=== PATIENT | female | born 1985 | race African-American/Black ===

== ENCOUNTER 2021-05-05 20:02 | Emergency (ER) | payer SELFPAY ==
[2021-05-05 21:22] LABS: Urine Blood 3+ (Negative); Urine Glucose Negative (Negative); Urine Protein 3+ (Negative); Urine Specific Gravity 1.025 (1.005-1.030); Urine pH 6.5 (5.0-7.0)
[2021-05-05 21:58] LABS: Urine Bacteria LOADED /HPF (<20)
--- NOTE | 2021-05-05 22:06 | RAD REPORT ---
EXAM DESCRIPTION: RAD - Chest Single View - 05/05/2021 9:59 pm CLINICAL HISTORY: SOB Chest pain. COMPARISON: No comparisons FINDINGS: Portable technique limits examination quality. Mild to moderate bilateral pulmonary opacities are present likely representing viral infection/bronch itis. The heart is upper limit of normal in size. No displaced fractures.
[2021-05-05] MEDS ORDERED: IBUPROFEN 200 MG TAB PO ONE (22:15)
[2021-05-05] MEDS ORDERED: NA CHLORIDE 0.9% 1,000 ML ONE (23:07)
[2021-05-05] MEDS ORDERED: HYDROCODONE/APAP 5/325 MG TAB ONE (23:07)
[2021-05-05] MEDS ORDERED: CEFTRIAXONE/SWI 1gm 1 GM/10 ML SYR ONE (23:07)
[2021-05-05] MEDS ORDERED: METHYLPREDNISOLONE 125 MG INJ ONE (23:07)
[2021-05-05] MEDS ORDERED: ONDANSETRON 4 MG/2 ML VIAL ONE (23:07)
[2021-05-05 23:16] LABS: Urine Specific Gravity/Preg 1.025 (1.005-1.030)
--- NOTE | 2021-05-05 23:28 | EDPHYS ---
Physician Documentation [facility] Name: Mariaelena Duvall Age: 35 yrs Sex: Female : 1985 Arrival Date: 05/05/2021 Time: 20:12 Bed 24 Private MD: ED Physician Tania Patel HPI: 05/05 23:26 This 35 yrs old Black Female presents to ER via Wheelchair with complaints of COVID ma2 POSITIVE, Breathing Difficulty, Dizziness, Weakness. 23:26 Onset: The symptoms/episode began/occurred gradually, 1 day(s) ago. Associated signs ma2 and symptoms: Pertinent negatives: dizziness, hemoptysis, numbness in extremities, visual changes. Severity of symptoms: At their worst the symptoms were mild in the emergency department the symptoms are unchanged. The patient has not experienced similar symptoms in the past. 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 - Social history:: Smoking status: Patient denies any tobacco usage or history of. - Family history:: not pertinent. ROS: 23:26 Constitutional: Negative for fever, chills, and weight loss. ma2 23:26 All other systems are negative. Exam: 23:26 Constitutional: This is a well developed, well nourished patient who is awake, alert, ma2 and in no acute distress. Head/Face: Normocephalic, atraumatic. Eyes: Pupils equal round and reactive to light, extra-ocular motions intact. Lids and lashes normal. Conjunctiva and sclera are non-icteric and not injected. Cornea within normal limits. Periorbital areas with no swelling, redness, or edema. ENT: Nares patent. No nasal discharge, no septal abnormalities noted. Tympanic membranes are normal and external auditory canals are clear. Oropharynx with no redness, swelling, or masses, exudates, or evidence of obstruction, uvula midline. Mucous membranes moist. Neck: Trachea midline, no thyromegaly or masses palpated, and no cervical lymphadenopathy. Supple, full range of motion without nuchal rigidity, or vertebral point tenderness. No Meningismus. Chest/axilla: Normal chest wall appearance and motion. Nontender with no deformity. No lesions are appreciated. Cardiovascular: Regular rate and rhythm with a normal S1 and S2. No gallops, murmurs, or rubs. Normal PMI, no JVD. No pulse deficits. Respiratory: Lungs have equal breath sounds bilaterally, clear to auscultation and percussion. No rales, rhonchi or wheezes noted. No increased work of breathing, no retractions or nasal flaring. Abdomen/GI: Soft, non-tender, with normal bowel sounds. No distension or tympany. No guarding or rebound. No evidence of tenderness throughout. Skin: Warm, dry with normal turgor. Normal color with no rashes, no lesions, and no evidence of cellulitis. MS/ Extremity: Pulses equal, no cyanosis. Neurovascular intact. Full, normal range of motion. Neuro: Awake and alert, GCS 15, oriented to person, place, time, and situation. Cranial nerves II-XII grossly intact. Motor strength 5/5 in all extremities. Sensory grossly intact. Cerebellar exam normal. Normal gait. Vital Signs: 20:37 BP 118 / 71; Pulse 130; Resp 20; Temp 100.8(O); Pulse Ox 96% on R/A; Weight 122.47 kg kg (R); Height 5 ft. 3 in. (160.02 cm); Pain 4/10; 21:51 BP 107 / 71; Pulse 122; Resp 22; Pulse Ox 97% on R/A; ld1 23:05 BP 108 / 54; Pulse 105; Resp 18; Temp 99.0(O); Pulse Ox 97% on R/A; Pain 0/10; ld1 20:37 Body Mass Index 47.83 (122.47 kg, 160.02 cm) kg MDM: 21:33 Patient medically screened. ma2 23:26 Differential diagnosis: Anxiety Reaction Bronchitis pneumonia, reactive airway disease. ma2 Data reviewed: vital signs, nurses notes. Counseling: I had a detailed discussion with the patient and/or guardian regarding: the historical points, exam findings, and any diagnostic results supporting the discharge/admit diagnosis, the presence of at least one elevated blood pressure reading (>120/80) during this emergency department visit, the need for outpatient follow up. Response to treatment: the patient's symptoms have markedly improved after treatment. 05/05 21:22 Order name: Urine Dipstick-Ancillary; Complete Time: 21:33 EDMS 05/05 21:23 Order name: Urine Microscopic Only; Complete Time: 22:33 em 05/05 20:43 Order name: XRAY Chest Pa And Lat (2 Views) kg 05/05 21:24 Order name: Urine --Ancillary (enter results); Complete Time: 23:28 mw2 05/05 21:59 Order name: Urine Culture EDMS 05/05 21:24 Order name: Urine Dipstick-Ancillary (obtain specimen); Complete Time: 21:25 mw2 05/05 21:33 Order name: Chest Single View; Complete Time: 22:33 EDMS 05/05 21:24 Order name: Urine Test (obtain specimen); Complete Time: 21:25 mw2 Administered Medications: 21:50 Drug: Motrin (ibuprofen) 600 mg Route: PO; ld1 22:02 Follow up: Response: No adverse reaction ld1 22:53 Drug: Zofran (Ondansetron) 4 mg Route: IVP; Site: right antecubital; ld1 22:55 Follow up: Response: No adverse reaction ld1 22:53 Drug: HYDROcodone-acetaminophen 5 mg-325 mg 1 tabs Route: PO; ld1 22:55 Follow up: Response: No adverse reaction ld1 22:54 Drug: Rocephin (cefTRIAXone) 1 grams Route: IV; Rate: calculated rate; Site: right ld1 antecubital; 22:55 Follow up: Response: No adverse reaction; IV Status: Completed infusion ld1 22:54 Drug: NS 0.9% 1000 ml Route: IV; Rate: 1 bolus; Site: right antecubital; ld1 22:54 Drug: MethylPrednisoLONE 125 mg Route: IVP; Site: right antecubital; ld1 22:55 Follow up: Response: No adverse reaction ld1 Disposition Summary: 05/05/21 23:27 Discharge Ordered Location: Home ma2 Condition: Stable ma2 Diagnosis - Other viral pneumonia - COVID 19 ma2 Followup: ma2 - With: Private Physician - When: Tomorrow - Reason: Discharge Instructions: - Discharge Summary Sheet ma2 - COVID-19 ma2 - 10 Things You Can Do to Manage Your COVID-19 Symptoms at Home - [facility] Forms: - Medication Reconciliation Form ma2 - Thank You Letter ma2 - Antibiotic Education ma2 - Prescription Opioid Use ma2 Prescriptions: - Zofran 4 mg Oral Tablet - take 1 tablet by ORAL route every 12 hours As needed; 20 tablet; Refills: 0, ma2 Product Selection Permitted - Diclofenac Sodium 75 mg Oral Tablet Sustained Release - take 1 tablet by ORAL route 2 times per day; 30 tablet; Refills: 0, Product ma2 Selection Permitted - Zithromax Z-Lexx 250 mg Oral Tablet - take 1 tablet by ORAL route as directed for 5 days Day 1 - take two (2) tablets ma2 one time. Day 2, 3, 4 , 5 take one (1) tablet once daily.; 6 tablet; Refills: 0, Product Selection Permitted - Medrol (Lexx) 4 mg Oral Tablets, Dose Pack - take 1 tablet by ORAL route as directed - follow package instructions; 1 ma2 packet; Refills: 0, Product Selection Permitted Signatures: Dispatcher [employer] EDMS Tania Patel MD MD ma2 Wei Andrade 2 Lauren Herman RN RN ld1 Mara Angulo RN RN kg Corrections: (The following items were deleted from the chart) 21:33 20:44 Chest Pa And Lat (2 Views) ordered. EDMS EDMS
--- NOTE | 2021-05-05 23:28 | ER ---
Nurse's Notes [facility] Name: Mariaelena Duvall Age: 35 yrs Sex: Female : 1985 Arrival Date: 05/05/2021 Time: 20:12 Bed 24 Private MD: Diagnosis: Other viral pneumonia-COVID 19 Presentation: 05/05 20:37 Chief complaint: Patient states: Covid + 04/30 , SOB, dizziness, unable to sleep, fever, kg chills, nausea. Coronavirus screen: Client denies travel out of the [place] in the last 14 days. At this time, unable to obtain information related to travel outside the [place] Client presents with at least one sign or symptom that may indicate coronavirus-19. Standard/surgical mask placed on the client. Provider contacted for isolation considerations. Client reports previous positive COVID test result. Date of collection: April 30, 2021. Ebola Screen: Patient negative for fever greater than or equal to 101.5 degrees Fahrenheit, and additional compatible Ebola Virus Disease symptoms Patient denies exposure to infectious person. Patient denies travel to an Ebola-affected area in the 21 days before illness onset. Initial Sepsis Screen: Does the patient meet any 2 criteria? No. Patient's initial sepsis screen is negative. Does the patient have a suspected source of infection? No. Patient's initial sepsis screen is negative. Risk Assessment: Do you want to hurt yourself or someone else? Patient reports no desire to harm self or others. Onset of symptoms was April 30, 2021. 20:37 Method Of Arrival: Wheelchair kg 20:37 Acuity: JOURDAN 3 kg Triage Assessment: 20:39 General: Appears in no apparent distress. Behavior is calm, cooperative, appropriate kg for age, quiet. Pain: Complains of pain in Generalized Pain does not radiate. Pain currently is 4 out of 10 on a pain scale. Quality of pain is described as aching. Respiratory: Reports shortness of breath cough that is productive, Onset: The symptoms/episode began/occurred the patient has moderate shortness of breath. 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 - Social history:: Smoking status: Patient denies any tobacco usage or history of. - Family history:: not pertinent. Screenin:42 Abuse screen: Denies threats or abuse. Denies injuries from another. Nutritional kg screening: No deficits noted. Tuberculosis screening: No symptoms or risk factors identified. Fall Risk None identified. Assessment: 21:51 General: Appears in no apparent distress. comfortable, Behavior is calm, cooperative, ld1 appropriate for age. Pain: Denies pain. Neuro: Level of Consciousness is awake, alert, obeys commands, Oriented to person, place, time, situation. Cardiovascular: Capillary refill < 3 seconds Patient's skin is warm and dry. Rhythm is sinus tachycardia. Respiratory: Airway is patent Respiratory effort is even, unlabored, Respiratory pattern is regular, symmetrical, Breath sounds are clear bilaterally. Respiratory: Reports shortness of breath cough that is. GI: Abdomen is non-distended, obese. : No signs and/or symptoms were reported regarding the genitourinary system. EENT: No signs and/or symptoms were reported regarding the EENT system. Derm: No signs and/or symptoms reported regarding the dermatologic system. Musculoskeletal: No signs and/or symptoms reported regarding the musculoskeletal system. 23:05 Reassessment: Patient appears in no apparent distress at this time. No changes from ld1 previously documented assessment. Patient and/or family updated on plan of care and expected duration. Pain level reassessed. Patient is alert, oriented x 3, equal unlabored respirations, skin warm/dry/pink. Vital Signs: 20:37 BP 118 / 71; Pulse 130; Resp 20; Temp 100.8(O); Pulse Ox 96% on R/A; Weight 122.47 kg kg (R); Height 5 ft. 3 in. (160.02 cm); Pain 4/10; 21:51 BP 107 / 71; Pulse 122; Resp 22; Pulse Ox 97% on R/A; ld1 23:05 BP 108 / 54; Pulse 105; Resp 18; Temp 99.0(O); Pulse Ox 97% on R/A; Pain 0/10; ld1 20:37 Body Mass Index 47.83 (122.47 kg, 160.02 cm) kg ED Course: 20:12 Patient arrived in ED. cf2 20:39 Triage completed. kg 20:39 Arm band placed on right wrist. kg 20:42 Patient has correct armband on for positive identification. kg 21:33 Tania Patel MD is Attending Physician. ma2 21:51 Lauren Herman, JHON is Primary Nurse. ld1 21:51 No provider procedures requiring assistance completed. ld1 21:58 Chest Single View In Process Unspecified. EDMS 22:49 Inserted saline lock: 20 gauge in right antecubital area, using aseptic technique. dh4 23:35 IV discontinued, intact, bleeding controlled, No redness/swelling at site. ld1 Administered Medications: 21:50 Drug: Motrin (ibuprofen) 600 mg Route: PO; ld1 22:02 Follow up: Response: No adverse reaction ld1 22:53 Drug: Zofran (Ondansetron) 4 mg Route: IVP; Site: right antecubital; ld1 22:55 Follow up: Response: No adverse reaction ld1 22:53 Drug: HYDROcodone-acetaminophen 5 mg-325 mg 1 tabs Route: PO; ld1 22:55 Follow up: Response: No adverse reaction ld1 22:54 Drug: Rocephin (cefTRIAXone) 1 grams Route: IV; Rate: calculated rate; Site: right ld1 antecubital; 22:55 Follow up: Response: No adverse reaction; IV Status: Completed infusion ld1 22:54 Drug: NS 0.9% 1000 ml Route: IV; Rate: 1 bolus; Site: right antecubital; ld1 22:54 Drug: MethylPrednisoLONE 125 mg Route: IVP; Site: right antecubital; ld1 22:55 Follow up: Response: No adverse reaction ld1 Outcome: 23:27 Discharge ordered by . ma2 23:35 Discharged to home via wheelchair. ld1 23:35 Condition: stable 23:35 Discharge instructions given to patient, Instructed on discharge instructions, follow up and referral plans. medication usage, Demonstrated understanding of instructions, follow-up care, medications. 23:35 Patient left the ED. ld1 Signatures: Dispatcher [employer] EDMS Tania Patel MD MD ma2 Eloise Colmenares 2 Sudhakar Williamson 4 Lauren Herman RN RN ld1 Mara Angulo RN RN kg
[2021-05-07 04:13] VITALS: O2SAT 97
[2021-05-07 04:15] VITALS: BP 108/54; TEMP 99
== END 2021-05-05 23:35 | disposition home or self-care (01) ==
LOC: ER 20:02
DX: U07.1 COVID-19 (principal); J12.82 Pneumonia due to coronavirus disease 2019
CPT/HCPCS: 71045; 81003; 81015; 81025; 87086; 87088; J0696; J2405; J2930; J7030

== ENCOUNTER 2022-04-16 09:18 | Emergency (ER) | payer OTHER, SELFPAY ==
[2022-04-16 10:20] LABS: Absolute Lymphocytes (CBC) 2.1 K/uL (0.7-4.9); Hematocrit 37.5 % (36.0-45.0); Lymphocytes % 24.8 % (15.3-44.8); MCV 81.4 fL (80-100); RBC Red Blood Cell Count 4.61 M/uL (3.86-4.86)
[2022-04-16 10:34] LABS: Potassium 3.8 mmol/L (3.5-5.1)
[2022-04-16] MEDS ORDERED: NA CHLORIDE 0.9% 1,000 ML ONE (10:34)
[2022-04-16] MEDS ORDERED: ONDANSETRON 4 MG/2 ML VIAL ONE (10:36)
[2022-04-16] MEDS ORDERED: MORPHINE 4 MG/ML SYR ONE (10:36)
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
[2022-04-16] MEDS ORDERED: CYCLOBENZAPRINE 10 MG TAB ONE (12:18)
[2022-04-16] MEDS ORDERED: KETOROLAC 30 MG/ML INJ ONE (12:19)
[2022-04-16 12:56] VITALS: TEMP 97.5; O2SAT 99
[2022-04-16 12:58] VITALS: BP 138/82
== END 2022-04-16 12:43 | disposition home or self-care (01) ==
LOC: ER 09:18
DX: S30.1XXA Contusion of abdominal wall, initial encounter (principal); S10.81XA Abrasion of other specified part of neck, initial encounter; V47.5XXA Car driver injured in collision with fixed or stationary object in traffic accident, initial encounter; E78.00 Pure hypercholesterolemia, unspecified; Z88.0 Allergy status to penicillin; Z88.2 Allergy status to sulfonamides
CPT/HCPCS: 85025; 80048; 36415; 86900; 86850; 86901; 70450; 72125; 71260; 74177; Q9967; J7030; J2405